=== PATIENT | female | born 1990 | race Caucasian/White ===

== ENCOUNTER 2019-05-21 12:59 | Emergency (ER) | payer OTHER ==
[2019-05-21 13:13] VITALS: BP 115/55; PULSE 81; RESP 18; TEMP 98.3
[2019-05-21] MEDS ORDERED: ACET/COD 300 MG/30 MG STARTER PACK 6 TAB BTL PO STA (13:39)
--- NOTE | 2019-05-21 13:39 | ED ---
General Adult HPI - General Stated complaint: lump under arm/hearing issues Time Seen by Provider: 05/21/19 13:08 Source: patient, RN notes reviewed Mode of arrival: ambulatory Limitations: no limitations - History of Present Illness Initial comments: This a 29-year-old female presents emergency Department chief complaint abscess to right axilla, right ear pain. Patient states she has to infected piercings. Patient states that she had a third digit removed in symptoms resolved. Patient states it swollen and makes it hard to hear. No fevers or chills. Patient has had a history of abscesses. No history of MRSA. - Related Data Previous Rx's Medication Instructions Recorded Cephalexin [Keflex] 500 mg PO Q6HR #40 cap 05/21/19 Ibuprofen [Motrin] 600 mg PO Q8HR PRN #20 tab 05/21/19 Sulfamethox-Tmp 800-160Mg [Bactrim 1 each PO Q12HR #20 tab 05/21/19 Ds] Allergies Allergy/AdvReac Type Severity Reaction Status Date / Time No Known Allergies Allergy Verified 05/21/19 13:13 Review of Systems ROS Statement: Those systems with pertinent positive or pertinent negative responses have been documented in the HPI. ROS Other: All systems not noted in ROS Statement are negative. Past Medical History Additional Past Medical History / Comment(s): kidney stones History of Any Multi-Drug Resistant Organisms: MRSA Date of last positivie culture/infection: 2016 MDRO Source:: leg Additional Past Surgical History / Comment(s): kidnye surg Smoking Status: Current every day smoker Past Alcohol Use History: Occasional Past Drug Use History: None Reported General Exam Limitations: no limitations General appearance: alert, in no apparent distress Head exam: Present: atraumatic, normocephalic, normal inspection Eye exam: Present: normal appearance, PERRL, EOMI. Absent: scleral icterus, conjunctival injection, periorbital swelling ENT exam: Present: normal oropharynx, mucous membranes moist, TM's normal bilaterally. Absent: normal external ear exam (Swelling of the tragus, mild erythema there is swelling of 2 piercings noted) Neck exam: Present: normal inspection, full ROM. Absent: tenderness, meningismus, lymphadenopathy Respiratory exam: Present: normal lung sounds bilaterally. Absent: respiratory distress, wheezes, rales, rhonchi, stridor Cardiovascular Exam: Present: regular rate, normal rhythm, normal heart sounds. Absent: systolic murmur, diastolic murmur, rubs, gallop, clicks Skin exam: Present: other (Right axilla there is 0.5 cm firm nonfluctuant abscess no erythema) Course Vital Signs 05/21/19 13:09 Temperature 98.3 F Pulse Rate 81 Respiratory 18 Rate Blood Pressure 115/55 O2 Sat by Pulse 99 Oximetry Medical Decision Making - Medical Decision Making Patient has infected piercing of her right ear did recommend removal though she wants to attempt oral antibiotics to see if if the symptoms weren't improved. Patient also has a right axilla abscess that does not require incision and drainage at this time. Patient will try warm compresses pain will be treated return parameters were discussed. Disposition Clinical Impression: Infected pierced ear, Abscess of right axilla Disposition: HOME SELF-CARE Condition: Stable Instructions (If sedation given, give patient instructions): Abscess (ED) Additional Instructions: Please return to the Emergency Department if symptoms worsen or any other concerns. Prescriptions: Sulfamethox-Tmp 800-160Mg [Bactrim Ds] 1 each PO Q12HR #20 tab Cephalexin [Keflex] 500 mg PO Q6HR #40 cap Ibuprofen [Motrin] 600 mg PO Q8HR PRN #20 tab PRN Reason: Pain Is patient prescribed a controlled substance at d/c from ED?: No Referrals: Nonstaff,Physician [Primary Care Provider] - 1-2 days Time of Disposition: 13:38
== END 2019-05-21 13:47 | disposition home or self-care (01) ==
LOC: EC 12:59
DX: L02.411 Cutaneous abscess of right axilla (principal); S01.331A Puncture wound without foreign body of right ear, initial encounter; F17.200 Nicotine dependence, unspecified, uncomplicated
CPT/HCPCS: 99282